=== PATIENT | female | born 1965 | race Caucasian/White ===

== ENCOUNTER 2018-08-27 11:31 | Inpatient (IN) ==
[2018-08-27] MEDS ORDERED: SODIUM CHLORIDE 0.9% 1,000 ML IV STA (12:02)
[2018-08-27] MEDS ORDERED: ONDANSETRON 4 MG/2 ML VIAL IV STA (12:02)
[2018-08-27 13:19] LABS: Basophils % 0.1 % (0.0-0.8); Eosinophils % 0.3 % (0.00-10.9); Hematocrit 33.8 VOL% (35.7-47.0); Immature Granulocytes % 0.7 %; Immature Granulocytes Absolute 0.05 #; Lymphocytes # 0.2 10*3/uL (1.4-4.0); Lymphocytes % 3.3 % (21.3-54.2); Mean Corpuscular HGB Conc 32.5 GM/DL (32-36); Mean Corpuscular Volume 91.1 FL (87-102); Mean Platelet Volume 10.5 FL (9.6-12.0); Monocytes % 0.8 % (1.7-12.7); Neutrophils % 94.8 % (38.7-73.9); Platelet Count 244 T/CUMM (130-400); Red Blood Count 3.71 MC/CUMM (3.8-5.5); Red Cell Distribution Width 13.1 % (9.3-17.3); White Blood Count 7.3 T/CUMM (4-12)
[2018-08-27 13:41] LABS: Albumin 2.9 G/DL (3.4-5.0); Calcium 9.2 MG/DL (8.5-10.1); Osmolality,Calculated 283.1 MOS/KG (273-304); Total Protein 7.8 G/DL (6.4-8.3)
[2018-08-27 13:48] LABS: Band Neutrophils 2 % (0-10); Lymphocytes 3 % (20-55); Segmented Neutrophils 95 % (50-85)
[2018-08-27 13:50] LABS: Platelet Estimate Adequate; Total Cells Counted 100
[2018-08-27] MEDS ORDERED: HYDROmorphone 2 MG/1 ML VIAL IV STA (14:17)
[2018-08-27] MEDS ORDERED: cefTRIAXone 1,000 MG in SODIUM CHLORIDE 0.9% 100 ML IV STA (14:19)
[2018-08-27 15:09] LABS: Apearance,Urine CLEAR (Clear); Bacteria,Urine Occasional /HPF (Few); Bilirubin,Urine Negative (Negative); Blood, Urine Negative (Negative); Glucose,Urine (UA) >=500 mg/dL (Negative); Ketones,Urine 5 mg/dL (Negative); Mucus,Urine Occasional /LPF (Occasional); Nitrite,Urine Negative (Negative); Protein,Urine Negative; RBC,Urine 1 /HPF (0-4); Squamous Epithelial Cell,Urine Occasional /HPF (0-10); Urine Color Yellow (Yellow); Urine Specific Gravity 1.028 (1.001-1.035); Urine Urobilinogen < 2.0 EU/DL (0.2-1.0); WBC,Urine 13 /HPF (0-6)
[2018-08-27 15:26] LABS: Barbiturates Screen,Urine Negative (Negative); Benzodiazepines Screen,Urine Negative (Negative); Cannabinoid Screen,Urine Negative (Negative); Opiate Screen,Urine Negative (Negative); Phencyclidine Screen,Urine Negative (Negative)
[2018-08-27] MEDS ORDERED: INSULIN LISPRO 100 UNIT/ML SUBCUT STA (16:04)
[2018-08-27] MEDS ORDERED: ZALEPLON 5 MG CAPSULE PO PRN (16:54)
[2018-08-27] MEDS ORDERED: DEXTROSE 10% 250 ML BAG IV PRN (16:54)
[2018-08-27] MEDS ORDERED: PROMETHAZINE 25 MG/1 ML VIAL IM PRN (16:54)
[2018-08-27] MEDS ORDERED: ONDANSETRON 4 MG/2 ML VIAL IV PRN (16:54)
[2018-08-27] MEDS ORDERED: GLUCAGON 1 MG VIAL IM PRN (16:54)
[2018-08-27] MEDS ORDERED: ACETAMINOPHEN 325 MG TABLET PO PRN (16:54)
[2018-08-27] MEDS ORDERED: HYDROmorphone 2 MG/1 ML VIAL IV PRN (17:52)
[2018-08-27] MEDS: SODIUM CHLORIDE 0.9% 1,000 ML IV SCH (21:02)
[2018-08-27] MEDS: INSULIN REGULAR 100 UNIT/ML SUBCUT SCH (22:07)
[2018-08-27] MEDS: MONTELUKAST 10 MG TABLET PO SCH (22:08)
[2018-08-27] MEDS: FUROSEMIDE 20 MG TABLET PO SCH (22:08)
[2018-08-27] MEDS: SIMVASTATIN 20 MG TABLET PO SCH (22:09)
[2018-08-27] MEDS: hydrOXYzine HCL 25 MG TABLET PO SCH (22:09)
[2018-08-27] MEDS: GABAPENTIN 300 MG CAPSULE PO SCH (22:09)
[2018-08-28 05:36] LABS: Basophils % 0.1 % (0.0-0.8); Eosinophils # 0.1 10*3/uL (0.0-0.87); Eosinophils % 0.7 % (0.00-10.9); Hematocrit 31.8 VOL% (35.7-47.0); Hemoglobin 10.4 GM/DL (12.0-16.0); Immature Granulocytes % 0.6 %; Immature Granulocytes Absolute 0.06 #; Lymphocytes # 1.2 10*3/uL (1.4-4.0); Lymphocytes % 11.6 % (21.3-54.2); Mean Corpuscular HGB Conc 32.7 GM/DL (32-36); Mean Corpuscular Volume 91.6 FL (87-102); Mean Platelet Volume 10.6 FL (9.6-12.0); Monocytes % 5.2 % (1.7-12.7); Neutrophils % 81.8 % (38.7-73.9); Platelet Count 209 T/CUMM (130-400); Red Blood Count 3.47 MC/CUMM (3.8-5.5); Red Cell Distribution Width 13.4 % (9.3-17.3); White Blood Count 10.7 T/CUMM (4-12)
[2018-08-28 05:59] LABS: Albumin 2.5 G/DL (3.4-5.0); Bilirubin,Total 0.6 MG/DL (0.2-1.0); Osmolality,Calculated 281.1 MOS/KG (273-304); Total Protein 7.3 G/DL (6.4-8.3)
[2018-08-28] MEDS ORDERED: hydroCHLOROthiazide 12.5 MG CAPSULE PO SCH (09:00)
[2018-08-28] MEDS ORDERED: cefTRIAXone 1,000 MG in SYRINGE 1 EACH IV SCH (09:00)
[2018-08-28] MEDS: INSULIN REGULAR 100 UNIT/ML SUBCUT SCH ×4 (09:34→21:01)
[2018-08-28] MEDS: FLUCONAZOLE 200 MG TABLET PO SCH (09:36)
[2018-08-28] MEDS: hydrOXYzine HCL 25 MG TABLET PO SCH ×2 (09:36→21:01)
[2018-08-28] MEDS: PANTOPRAZOLE 40 MG TABLET PO SCH (09:36)
[2018-08-28] MEDS: FOSINOPRIL 10 MG TABLET PO SCH (09:36)
[2018-08-28] MEDS: amLODIPine 10 MG TABLET PO SCH (09:36)
[2018-08-28] MEDS: buPROPion XL 150 MG TABLET PO SCH (09:36)
[2018-08-28] MEDS: GABAPENTIN 300 MG CAPSULE PO SCH ×3 (09:36→21:01)
[2018-08-28] MEDS: CLOPIDOGREL 75 MG TABLET PO SCH (09:36)
[2018-08-28] MEDS: predniSONE 10 MG TABLET PO SCH (09:37)
[2018-08-28] MEDS: ASPIRIN EC 81 MG TABLET PO SCH (09:37)
[2018-08-28] MEDS: LORATADINE 10 MG TABLET PO SCH (09:38)
[2018-08-28] MEDS: FUROSEMIDE 20 MG TABLET PO SCH ×2 (09:38→21:00)
[2018-08-28] MEDS: hydroCHLOROthiazide 25 MG TABLET PO SCH (09:38)
[2018-08-28] MEDS: GENTAMICIN INJ 320 MG in SODIUM CHLORIDE 0.9% 100 ML IV SCH (13:27)
[2018-08-28] MEDS: INSULIN GLARGINE 100 UNIT/ML SUBCUT SCH ×2 (14:10→21:01)
[2018-08-28] MEDS: SODIUM CHLORIDE 0.9% 1,000 ML IV SCH (16:49)
[2018-08-28] MEDS: MONTELUKAST 10 MG TABLET PO SCH (21:00)
[2018-08-28] MEDS: SIMVASTATIN 20 MG TABLET PO SCH (21:01)
[2018-08-29] MEDS: SODIUM CHLORIDE 0.9% 1,000 ML IV SCH ×4 (02:49→23:20)
[2018-08-29 04:57] LABS: Basophils % 0.3 % (0.0-0.8); Eosinophils # 0.1 10*3/uL (0.0-0.87); Eosinophils % 1.4 % (0.00-10.9); Hematocrit 31.6 VOL% (35.7-47.0); Immature Granulocytes % 0.6 %; Immature Granulocytes Absolute 0.06 #; Lymphocytes % 19.1 % (21.3-54.2); Mean Corpuscular HGB Conc 31.6 GM/DL (32-36); Mean Corpuscular Volume 93.5 FL (87-102); Mean Platelet Volume 10.7 FL (9.6-12.0); Monocytes % 6.8 % (1.7-12.7); Neutrophils % 71.8 % (38.7-73.9); Platelet Count 203 T/CUMM (130-400); Red Blood Count 3.38 MC/CUMM (3.8-5.5); Red Cell Distribution Width 13.2 % (9.3-17.3); White Blood Count 10.2 T/CUMM (4-12)
[2018-08-29 05:16] LABS: Risk Ratio 5.97; VLDL CHOLESTEROL 51.2 MG/DL
[2018-08-29 05:22] LABS: Calcium 8.7 MG/DL (8.5-10.1); Osmolality,Calculated 282.1 MOS/KG (273-304)
[2018-08-29] MEDS ORDERED: POTASSIUM CHLORIDE 20 MEQ TABLET PO ONE ×2 (08:05→12:00)
[2018-08-29] MEDS: INSULIN GLARGINE 100 UNIT/ML SUBCUT SCH ×2 (08:35→20:31)
[2018-08-29] MEDS: INSULIN REGULAR 100 UNIT/ML SUBCUT SCH ×4 (08:35→20:31)
[2018-08-29] MEDS: ASPIRIN EC 81 MG TABLET PO SCH (08:37)
[2018-08-29] MEDS: FUROSEMIDE 20 MG TABLET PO SCH ×2 (08:37→20:31)
[2018-08-29] MEDS: hydroCHLOROthiazide 25 MG TABLET PO SCH (08:37)
[2018-08-29] MEDS: FOSINOPRIL 10 MG TABLET PO SCH (08:37)
[2018-08-29] MEDS: amLODIPine 10 MG TABLET PO SCH (08:38)
[2018-08-29] MEDS: GABAPENTIN 300 MG CAPSULE PO SCH ×3 (08:39→20:31)
[2018-08-29] MEDS: CLOPIDOGREL 75 MG TABLET PO SCH (08:39)
[2018-08-29] MEDS: FLUCONAZOLE 200 MG TABLET PO SCH (08:39)
[2018-08-29] MEDS: PANTOPRAZOLE 40 MG TABLET PO SCH (08:40)
[2018-08-29] MEDS: predniSONE 10 MG TABLET PO SCH (08:40)
[2018-08-29] MEDS: LORATADINE 10 MG TABLET PO SCH (08:40)
[2018-08-29] MEDS: buPROPion XL 150 MG TABLET PO SCH (08:40)
[2018-08-29] MEDS: FLUoxetine 20 MG CAPSULE PO SCH (08:51)
[2018-08-29] MEDS ORDERED: cefTRIAXone 2,000 MG in SYRINGE 1 EACH IV SCH (09:00)
[2018-08-29] MEDS: hydrOXYzine HCL 25 MG TABLET PO SCH ×2 (09:00→20:31)
[2018-08-29] MEDS: GENTAMICIN INJ 320 MG in SODIUM CHLORIDE 0.9% 100 ML IV SCH (12:22)
[2018-08-29] MEDS ORDERED: Liraglutide 1.2 MG SUBCUT SCH (12:45)
[2018-08-29] MEDS: OMEGA 3 ACID ETHYL ESTERS 1 GM CAPSULE PO SCH ×2 (14:18→20:30)
[2018-08-29] MEDS: sitaGLIPtin 100 MG TABLET PO SCH (14:18)
[2018-08-29] MEDS: MONTELUKAST 10 MG TABLET PO SCH (20:30)
[2018-08-29] MEDS: SIMVASTATIN 20 MG TABLET PO SCH (20:31)
[2018-08-30] MEDS: cefTRIAXone 2,000 MG in SODIUM CHLORIDE 0.9% 100 ML IV SCH (09:15)
[2018-08-30] MEDS: INSULIN GLARGINE 100 UNIT/ML SUBCUT SCH ×2 (09:15→21:00)
[2018-08-30] MEDS: INSULIN REGULAR 100 UNIT/ML SUBCUT SCH ×4 (09:15→21:01)
[2018-08-30] MEDS: FLUCONAZOLE 200 MG TABLET PO SCH (09:16)
[2018-08-30] MEDS: ASPIRIN EC 81 MG TABLET PO SCH (09:16)
[2018-08-30] MEDS: FUROSEMIDE 20 MG TABLET PO SCH ×2 (09:16→21:02)
[2018-08-30] MEDS: hydroCHLOROthiazide 25 MG TABLET PO SCH (09:16)
[2018-08-30] MEDS: buPROPion XL 150 MG TABLET PO SCH (09:16)
[2018-08-30] MEDS: LORATADINE 10 MG TABLET PO SCH (09:17)
[2018-08-30] MEDS: amLODIPine 10 MG TABLET PO SCH (09:17)
[2018-08-30] MEDS: FLUoxetine 20 MG CAPSULE PO SCH (09:17)
[2018-08-30] MEDS: OMEGA 3 ACID ETHYL ESTERS 1 GM CAPSULE PO SCH ×2 (09:17→23:20)
[2018-08-30] MEDS: predniSONE 10 MG TABLET PO SCH (09:17)
[2018-08-30] MEDS: hydrOXYzine HCL 25 MG TABLET PO SCH ×2 (09:17→21:02)
[2018-08-30] MEDS: sitaGLIPtin 100 MG TABLET PO SCH (09:17)
[2018-08-30] MEDS: GABAPENTIN 300 MG CAPSULE PO SCH ×3 (09:18→21:02)
[2018-08-30] MEDS: SODIUM CHLORIDE 0.9% 1,000 ML IV SCH ×2 (09:21→20:44)
[2018-08-30] MEDS: FOSINOPRIL 10 MG TABLET PO SCH (09:27)
[2018-08-30] MEDS: PANTOPRAZOLE 40 MG TABLET PO SCH (09:28)
[2018-08-30] MEDS: GENTAMICIN INJ 320 MG in SODIUM CHLORIDE 0.9% 100 ML IV SCH (15:07)
[2018-08-30] MEDS ORDERED: SODIUM CHLORIDE 0.9% 500 ML IV ONE (20:53)
[2018-08-30] MEDS: SIMVASTATIN 20 MG TABLET PO SCH (21:02)
[2018-08-30] MEDS: MONTELUKAST 10 MG TABLET PO SCH (21:02)
[2018-08-31] MEDS ORDERED: GENTAMICIN INJ 320 MG in SODIUM CHLORIDE 0.9% 100 ML IV SCH
[2018-08-31 05:49] LABS: Basophils % 0.2 % (0.0-0.8); Eosinophils # 0.3 10*3/uL (0.0-0.87); Eosinophils % 2.7 % (0.00-10.9); Hematocrit 31.2 VOL% (35.7-47.0); Immature Granulocytes % 0.9 %; Immature Granulocytes Absolute 0.08 #; Lymphocytes # 2.7 10*3/uL (1.4-4.0); Lymphocytes % 28.5 % (21.3-54.2); Mean Corpuscular HGB Conc 32.1 GM/DL (32-36); Mean Corpuscular Volume 92.6 FL (87-102); Mean Platelet Volume 10.5 FL (9.6-12.0); Monocytes % 6.2 % (1.7-12.7); Neutrophils % 61.5 % (38.7-73.9); Platelet Count 260 T/CUMM (130-400); Red Blood Count 3.37 MC/CUMM (3.8-5.5); Red Cell Distribution Width 13.5 % (9.3-17.3); White Blood Count 9.4 T/CUMM (4-12)
[2018-08-31 06:09] LABS: Calcium 9.2 MG/DL (8.5-10.1); Osmolality,Calculated 287.1 MOS/KG (273-304)
[2018-08-31] MEDS: INSULIN REGULAR 100 UNIT/ML SUBCUT SCH ×4 (09:30→21:13)
[2018-08-31] MEDS: sitaGLIPtin 100 MG TABLET PO SCH (09:31)
[2018-08-31] MEDS: buPROPion XL 150 MG TABLET PO SCH (09:31)
[2018-08-31] MEDS: OMEGA 3 ACID ETHYL ESTERS 1 GM CAPSULE PO SCH ×2 (09:31→21:13)
[2018-08-31] MEDS: predniSONE 10 MG TABLET PO SCH (09:32)
[2018-08-31] MEDS: PANTOPRAZOLE 40 MG TABLET PO SCH (09:32)
[2018-08-31] MEDS: hydroCHLOROthiazide 25 MG TABLET PO SCH (09:32)
[2018-08-31] MEDS: FUROSEMIDE 20 MG TABLET PO SCH ×2 (09:32→21:13)
[2018-08-31] MEDS: FLUCONAZOLE 200 MG TABLET PO SCH (09:32)
[2018-08-31] MEDS: hydrOXYzine HCL 25 MG TABLET PO SCH ×2 (09:33→21:12)
[2018-08-31] MEDS: LORATADINE 10 MG TABLET PO SCH (09:34)
[2018-08-31] MEDS: ASPIRIN EC 81 MG TABLET PO SCH (09:34)
[2018-08-31] MEDS: GABAPENTIN 300 MG CAPSULE PO SCH ×3 (09:35→21:13)
[2018-08-31] MEDS: FOSINOPRIL 10 MG TABLET PO SCH (09:35)
[2018-08-31] MEDS: FLUoxetine 20 MG CAPSULE PO SCH (09:46)
[2018-08-31] MEDS: amLODIPine 10 MG TABLET PO SCH (09:46)
[2018-08-31] MEDS: INSULIN GLARGINE 100 UNIT/ML SUBCUT SCH ×2 (09:47→21:13)
[2018-08-31] MEDS: SODIUM CHLORIDE 0.9% 1,000 ML IV SCH ×2 (10:02→20:02)
[2018-08-31] MEDS: cefTRIAXone 2,000 MG in SODIUM CHLORIDE 0.9% 100 ML IV SCH (10:03)
[2018-08-31] MEDS: SIMVASTATIN 20 MG TABLET PO SCH (21:14)
[2018-08-31] MEDS: MONTELUKAST 10 MG TABLET PO SCH (21:14)
[2018-09-01 05:02] LABS: Basophils % 0.4 % (0.0-0.8); Eosinophils # 0.2 10*3/uL (0.0-0.87); Eosinophils % 2.3 % (0.00-10.9); Hematocrit 33.3 VOL% (35.7-47.0); Hemoglobin 10.4 GM/DL (12.0-16.0); Immature Granulocytes % 1.1 %; Immature Granulocytes Absolute 0.12 #; Lymphocytes # 2.8 10*3/uL (1.4-4.0); Lymphocytes % 26.8 % (21.3-54.2); Mean Corpuscular HGB Conc 31.2 GM/DL (32-36); Mean Corpuscular Volume 94.3 FL (87-102); Mean Platelet Volume 10.3 FL (9.6-12.0); Monocytes % 6.8 % (1.7-12.7); Neutrophils % 62.6 % (38.7-73.9); Platelet Count 307 T/CUMM (130-400); Red Blood Count 3.53 MC/CUMM (3.8-5.5); Red Cell Distribution Width 13.4 % (9.3-17.3); White Blood Count 10.5 T/CUMM (4-12)
[2018-09-01 05:32] LABS: Calcium 9.4 MG/DL (8.5-10.1); Osmolality,Calculated 281.4 MOS/KG (273-304)
[2018-09-01] MEDS: SODIUM CHLORIDE 0.9% 1,000 ML IV SCH ×2 (07:30→16:54)
[2018-09-01] MEDS: INSULIN REGULAR 100 UNIT/ML SUBCUT SCH ×4 (08:49→21:06)
[2018-09-01] MEDS: hydroCHLOROthiazide 25 MG TABLET PO SCH (09:29)
[2018-09-01] MEDS: INSULIN GLARGINE 100 UNIT/ML SUBCUT SCH ×2 (09:29→21:07)
[2018-09-01] MEDS: ASPIRIN EC 81 MG TABLET PO SCH (09:29)
[2018-09-01] MEDS: buPROPion XL 150 MG TABLET PO SCH (09:29)
[2018-09-01] MEDS: LORATADINE 10 MG TABLET PO SCH (09:30)
[2018-09-01] MEDS: predniSONE 10 MG TABLET PO SCH (09:30)
[2018-09-01] MEDS: PANTOPRAZOLE 40 MG TABLET PO SCH (09:30)
[2018-09-01] MEDS: amLODIPine 10 MG TABLET PO SCH (09:30)
[2018-09-01] MEDS: GABAPENTIN 300 MG CAPSULE PO SCH ×3 (09:30→21:06)
[2018-09-01] MEDS: OMEGA 3 ACID ETHYL ESTERS 1 GM CAPSULE PO SCH ×2 (09:30→21:06)
[2018-09-01] MEDS: FUROSEMIDE 20 MG TABLET PO SCH ×2 (09:30→21:07)
[2018-09-01] MEDS: LEVOFLOXACIN 500 MG TABLET PO SCH (09:30)
[2018-09-01] MEDS: sitaGLIPtin 100 MG TABLET PO SCH (09:30)
[2018-09-01] MEDS: hydrOXYzine HCL 25 MG TABLET PO SCH ×2 (09:30→21:06)
[2018-09-01] MEDS: FLUoxetine 20 MG CAPSULE PO SCH (09:31)
[2018-09-01] MEDS: FOSINOPRIL 10 MG TABLET PO SCH (09:31)
[2018-09-01] MEDS: CLOPIDOGREL 75 MG TABLET PO SCH (09:34)
[2018-09-01] MEDS: SIMVASTATIN 20 MG TABLET PO SCH (21:06)
[2018-09-01] MEDS: MONTELUKAST 10 MG TABLET PO SCH (21:06)
[2018-09-02] MEDS: SODIUM CHLORIDE 0.9% 1,000 ML IV SCH ×3 (03:45→23:08)
[2018-09-02] MEDS: INSULIN GLARGINE 100 UNIT/ML SUBCUT SCH ×2 (08:06→20:21)
[2018-09-02] MEDS: INSULIN REGULAR 100 UNIT/ML SUBCUT SCH ×4 (08:07→20:22)
[2018-09-02] MEDS: sitaGLIPtin 100 MG TABLET PO SCH (08:08)
[2018-09-02] MEDS: hydroCHLOROthiazide 25 MG TABLET PO SCH (08:08)
[2018-09-02] MEDS: OMEGA 3 ACID ETHYL ESTERS 1 GM CAPSULE PO SCH ×2 (08:08→20:21)
[2018-09-02] MEDS: FLUoxetine 20 MG CAPSULE PO SCH (08:08)
[2018-09-02] MEDS: GABAPENTIN 300 MG CAPSULE PO SCH ×3 (08:09→20:21)
[2018-09-02] MEDS: LEVOFLOXACIN 500 MG TABLET PO SCH (08:09)
[2018-09-02] MEDS: CLOPIDOGREL 75 MG TABLET PO SCH (08:09)
[2018-09-02] MEDS: PANTOPRAZOLE 40 MG TABLET PO SCH (08:10)
[2018-09-02] MEDS: amLODIPine 10 MG TABLET PO SCH (08:10)
[2018-09-02] MEDS: predniSONE 10 MG TABLET PO SCH (08:10)
[2018-09-02] MEDS: LORATADINE 10 MG TABLET PO SCH (08:10)
[2018-09-02] MEDS: buPROPion XL 150 MG TABLET PO SCH (08:10)
[2018-09-02] MEDS: FUROSEMIDE 20 MG TABLET PO SCH ×2 (08:10→20:21)
[2018-09-02] MEDS: ASPIRIN EC 81 MG TABLET PO SCH (08:10)
[2018-09-02] MEDS: FOSINOPRIL 10 MG TABLET PO SCH (08:10)
[2018-09-02] MEDS: hydrOXYzine HCL 25 MG TABLET PO SCH ×2 (08:15→20:21)
[2018-09-02] MEDS ORDERED: INSULIN REGULAR 100 UNIT/ML SUBCUT ONE (18:26)
[2018-09-02] MEDS: MONTELUKAST 10 MG TABLET PO SCH (20:21)
[2018-09-02] MEDS: SIMVASTATIN 20 MG TABLET PO SCH (20:21)
[2018-09-03 05:38] LABS: Calcium 9.5 MG/DL (8.5-10.1); Osmolality,Calculated 290.4 MOS/KG (273-304)
[2018-09-03] MEDS: INSULIN REGULAR 100 UNIT/ML SUBCUT SCH ×2 (08:26→12:33)
[2018-09-03] MEDS: INSULIN GLARGINE 100 UNIT/ML SUBCUT SCH (09:05)
[2018-09-03] MEDS: FUROSEMIDE 20 MG TABLET PO SCH (09:06)
[2018-09-03] MEDS: predniSONE 10 MG TABLET PO SCH (09:06)
[2018-09-03] MEDS: GABAPENTIN 300 MG CAPSULE PO SCH (09:06)
[2018-09-03] MEDS: hydroCHLOROthiazide 25 MG TABLET PO SCH (09:06)
[2018-09-03] MEDS: sitaGLIPtin 100 MG TABLET PO SCH (09:07)
[2018-09-03] MEDS: OMEGA 3 ACID ETHYL ESTERS 1 GM CAPSULE PO SCH (09:07)
[2018-09-03] MEDS: amLODIPine 10 MG TABLET PO SCH (09:07)
[2018-09-03] MEDS: CLOPIDOGREL 75 MG TABLET PO SCH (09:07)
[2018-09-03] MEDS: FLUoxetine 20 MG CAPSULE PO SCH (09:07)
[2018-09-03] MEDS: ASPIRIN EC 81 MG TABLET PO SCH (09:07)
[2018-09-03] MEDS: LEVOFLOXACIN 500 MG TABLET PO SCH (09:07)
[2018-09-03] MEDS: LORATADINE 10 MG TABLET PO SCH (09:07)
[2018-09-03] MEDS: buPROPion XL 150 MG TABLET PO SCH (09:07)
[2018-09-03] MEDS: PANTOPRAZOLE 40 MG TABLET PO SCH (09:07)
[2018-09-03] MEDS: FOSINOPRIL 10 MG TABLET PO SCH (09:08)
[2018-09-03] MEDS: hydrOXYzine HCL 25 MG TABLET PO SCH (09:53)
[2018-09-03 11:44] VITALS: BP 91/58
== END 2018-09-03 12:30 | disposition home or self-care (01) | DRG 690 ==
LOC: EDUNIT# → EDBD → N.ED 11:31 → N.2E 16:54
PROVIDERS: ADMIT Internal Medicine; ATTEND Internal Medicine

== ENCOUNTER 2018-09-06 21:14 | Observation (INO) ==
[2018-09-06 22:45] LABS: Basophils % 0.3 % (0.0-0.8); Eosinophils # 0.1 10*3/uL (0.0-0.87); Eosinophils % 0.5 % (0.00-10.9); Hematocrit 40.6 VOL% (35.7-47.0); Hemoglobin 12.5 GM/DL (12.0-16.0); Immature Granulocytes % 0.9 %; Immature Granulocytes Absolute 0.12 #; Lymphocytes # 1.3 10*3/uL (1.4-4.0); Lymphocytes % 10.4 % (21.3-54.2); Mean Corpuscular HGB Conc 30.8 GM/DL (32-36); Mean Corpuscular Volume 93.3 FL (87-102); Mean Platelet Volume 9.3 FL (9.6-12.0); Monocytes % 3.6 % (1.7-12.7); Neutrophils % 84.3 % (38.7-73.9); Platelet Count 364 T/CUMM (130-400); Red Blood Count 4.35 MC/CUMM (3.8-5.5); Red Cell Distribution Width 13.2 % (9.3-17.3); White Blood Count 12.9 T/CUMM (4-12)
[2018-09-06 22:53] LABS: PT Patient Result 11.3 SECS; Partial Thromboplastin Time 24.3 SECS (0-40)
[2018-09-06 23:38] LABS: Albumin 3.6 G/DL (3.4-5.0); Bilirubin,Total 0.6 MG/DL (0.2-1.0); Osmolality,Calculated 283.1 MOS/KG (273-304); Total Protein 8.2 G/DL (6.4-8.3)
[2018-09-06] MEDS ORDERED: ONDANSETRON 4 MG/2 ML VIAL IV STA (23:53)
[2018-09-06] MEDS ORDERED: SODIUM CHLORIDE 0.9% 1,000 ML IV STA (23:53)
[2018-09-07 00:40] LABS: Apearance,Urine CLOUDY (Clear); Bilirubin,Urine Negative (Negative); Blood, Urine Small mg/dL (Negative); Glucose,Urine (UA) 50 mg/dL (Negative); Ketones,Urine 5 mg/dL (Negative); Mucus,Urine Few /LPF (Occasional); Nitrite,Urine Negative (Negative); Protein,Urine 100 MG/DL; RBC,Urine 217 /HPF (0-4); Squamous Epithelial Cell,Urine Many /HPF (0-10); Urine Color Yellow (Yellow); Urine Specific Gravity 1.018 (1.001-1.035); Urine Urobilinogen < 2.0 EU/DL (0.2-1.0); WBC,Urine 8867 /HPF (0-6)
[2018-09-07] MEDS ORDERED: ACETAMINOPHEN 325 MG TABLET PO PRN (03:06)
[2018-09-07] MEDS: LEVOFLOXACIN INJ 500 MG in PREMIX 1 EACH IV SCH (04:01)
[2018-09-07] MEDS: ONDANSETRON 4 MG/2 ML VIAL IV PRN ×3 (04:06→12:16)
[2018-09-07 04:47] LABS: Basophils % 0.2 % (0.0-0.8); Eosinophils % 0.3 % (0.00-10.9); Hematocrit 35.5 VOL% (35.7-47.0); Hemoglobin 11.4 GM/DL (12.0-16.0); Immature Granulocytes % 0.9 %; Immature Granulocytes Absolute 0.11 #; Lymphocytes # 2.2 10*3/uL (1.4-4.0); Lymphocytes % 17.7 % (21.3-54.2); Mean Corpuscular HGB Conc 32.1 GM/DL (32-36); Mean Corpuscular Volume 92.4 FL (87-102); Mean Platelet Volume 10.1 FL (9.6-12.0); Monocytes % 3.2 % (1.7-12.7); Neutrophils % 77.7 % (38.7-73.9); Platelet Count 357 T/CUMM (130-400); Red Blood Count 3.84 MC/CUMM (3.8-5.5); Red Cell Distribution Width 13.2 % (9.3-17.3); White Blood Count 12.4 T/CUMM (4-12)
[2018-09-07] MEDS ORDERED: DEXTROSE 50% 25 GM/50 ML VIAL IV PRN (04:57)
[2018-09-07] MEDS ORDERED: GLUCAGON 1 MG VIAL IM PRN (04:57)
[2018-09-07 05:20] LABS: Albumin 3.1 G/DL (3.4-5.0); Bilirubin,Total 0.6 MG/DL (0.2-1.0); Calcium 9.3 MG/DL (8.5-10.1); Osmolality,Calculated 280.2 MOS/KG (273-304); Total Protein 8.1 G/DL (6.4-8.3)
[2018-09-07] MEDS ORDERED: [UNRECOGNIZED DRUG - OTHER] PO SCH (09:00)
[2018-09-07] MEDS ORDERED: NON-FORMULARY MEDICATION (Liraglutide 1.2 MG) SUBCUT SCH (09:00)
[2018-09-07] MEDS: GABAPENTIN 300 MG CAPSULE PO SCH ×3 (09:24→21:38)
[2018-09-07] MEDS: PANTOPRAZOLE 40 MG TABLET PO SCH (09:25)
[2018-09-07] MEDS: sitaGLIPtin 100 MG TABLET PO SCH (09:25)
[2018-09-07] MEDS: hydroCHLOROthiazide 12.5 MG CAPSULE PO SCH (09:25)
[2018-09-07] MEDS: buPROPion XL 150 MG TABLET PO SCH (09:25)
[2018-09-07] MEDS: OMEGA 3 ACID ETHYL ESTERS 1 GM CAPSULE PO SCH ×2 (09:25→21:43)
[2018-09-07] MEDS: LORATADINE 10 MG TABLET PO SCH (09:25)
[2018-09-07] MEDS: hydrOXYzine HCL 25 MG TABLET PO SCH ×2 (09:25→21:38)
[2018-09-07] MEDS: ASPIRIN EC 81 MG TABLET PO SCH (09:25)
[2018-09-07] MEDS: LISINOPRIL 20 MG TABLET PO SCH (09:25)
[2018-09-07] MEDS: predniSONE 10 MG TABLET PO SCH (09:25)
[2018-09-07] MEDS: CLOPIDOGREL 75 MG TABLET PO SCH (09:26)
[2018-09-07] MEDS: amLODIPine 10 MG TABLET PO SCH (09:26)
[2018-09-07] MEDS: FUROSEMIDE 20 MG TABLET PO SCH ×2 (09:26→15:10)
[2018-09-07] MEDS: FLUoxetine 20 MG CAPSULE PO SCH (09:26)
[2018-09-07] MEDS: INSULIN GLARGINE 100 UNIT/ML SUBCUT SCH ×2 (09:26→21:43)
[2018-09-07] MEDS: INSULIN LISPRO 100 UNIT/ML SUBCUT SCH ×4 (09:27→23:14)
[2018-09-07] MEDS: ENOXAPARIN 30 MG/0.3 ML SYRINGE SUBCUT SCH (15:11)
[2018-09-07 15:13] LABS: Hepatitis B Core IgM Quant 0.09 Index; Hepatitis B Surface Ag Quant < 0.10 Index; Hepatitis B Surface Ag Result Negative (Negative); Hepatitis C Virus Ab Quant 0.08 Index; Hepatitis C Virus Ab Result Negative (Negative)
[2018-09-07] MEDS: SIMVASTATIN 20 MG TABLET PO SCH (21:38)
[2018-09-07] MEDS: MONTELUKAST 10 MG TABLET PO SCH (21:38)
[2018-09-08] MEDS: LEVOFLOXACIN INJ 500 MG in PREMIX 1 EACH IV SCH (03:46)
[2018-09-08 04:14] LABS: Basophils % 0.3 % (0.0-0.8); Eosinophils # 0.2 10*3/uL (0.0-0.87); Eosinophils % 2.1 % (0.00-10.9); Hematocrit 36.7 VOL% (35.7-47.0); Hemoglobin 11.4 GM/DL (12.0-16.0); Lymphocytes # 3.8 10*3/uL (1.4-4.0); Lymphocytes % 37.3 % (21.3-54.2); Mean Corpuscular HGB Conc 31.1 GM/DL (32-36); Mean Corpuscular Volume 94.1 FL (87-102); Mean Platelet Volume 9.5 FL (9.6-12.0); Monocytes % 6.2 % (1.7-12.7); Neutrophils % 53.1 % (38.7-73.9); Platelet Count 340 T/CUMM (130-400); Red Cell Distribution Width 13.1 % (9.3-17.3); White Blood Count 10.1 T/CUMM (4-12)
[2018-09-08 04:42] LABS: Bilirubin,Total 0.5 MG/DL (0.2-1.0); Calcium 10.1 MG/DL (8.5-10.1); Osmolality,Calculated 278.7 MOS/KG (273-304)
[2018-09-08] MEDS ORDERED: LACTATED RINGERS 1,000 ML IV SCH (08:00)
[2018-09-08] MEDS: INSULIN LISPRO 100 UNIT/ML SUBCUT SCH ×4 (08:15→20:37)
[2018-09-08] MEDS: FUROSEMIDE 20 MG TABLET PO SCH ×2 (13:17→16:17)
[2018-09-08] MEDS: INSULIN GLARGINE 100 UNIT/ML SUBCUT SCH ×2 (13:21→20:37)
[2018-09-08] MEDS: GABAPENTIN 300 MG CAPSULE PO SCH ×3 (13:22→20:38)
[2018-09-08] MEDS ORDERED: LIDOCAINE 2% 5 ML VIAL ONE (13:55)
[2018-09-08] MEDS ORDERED: ETOMIDATE 20 MG/10 ML VIAL IV ONE (13:55)
[2018-09-08] MEDS ORDERED: PROPOFOL 200 MG/20 ML VIAL IV ONE (13:55)
[2018-09-08] MEDS: OMEGA 3 ACID ETHYL ESTERS 1 GM CAPSULE PO SCH ×3 (16:00→20:45)
[2018-09-08] MEDS: hydrOXYzine HCL 25 MG TABLET PO SCH ×2 (16:00→20:38)
[2018-09-08] MEDS: CLOPIDOGREL 75 MG TABLET PO SCH (16:16)
[2018-09-08] MEDS: hydroCHLOROthiazide 12.5 MG CAPSULE PO SCH (16:17)
[2018-09-08] MEDS: PANTOPRAZOLE 40 MG TABLET PO SCH (16:17)
[2018-09-08] MEDS: LORATADINE 10 MG TABLET PO SCH (16:17)
[2018-09-08] MEDS: buPROPion XL 150 MG TABLET PO SCH (16:17)
[2018-09-08] MEDS: sitaGLIPtin 100 MG TABLET PO SCH (16:17)
[2018-09-08] MEDS: predniSONE 10 MG TABLET PO SCH (16:17)
[2018-09-08] MEDS: LISINOPRIL 20 MG TABLET PO SCH (16:18)
[2018-09-08] MEDS: amLODIPine 10 MG TABLET PO SCH (16:18)
[2018-09-08] MEDS: ASPIRIN EC 81 MG TABLET PO SCH (16:18)
[2018-09-08] MEDS: FLUoxetine 20 MG CAPSULE PO SCH (16:18)
[2018-09-08] MEDS: ENOXAPARIN 30 MG/0.3 ML SYRINGE SUBCUT SCH (16:19)
[2018-09-08] MEDS: SIMVASTATIN 20 MG TABLET PO SCH (20:38)
[2018-09-08] MEDS: MONTELUKAST 10 MG TABLET PO SCH (20:38)
[2018-09-09] MEDS: LEVOFLOXACIN INJ 500 MG in PREMIX 1 EACH IV SCH (03:38)
[2018-09-09 04:27] LABS: Basophils % 0.2 % (0.0-0.8); Eosinophils # 0.1 10*3/uL (0.0-0.87); Eosinophils % 0.9 % (0.00-10.9); Hemoglobin 11.1 GM/DL (12.0-16.0); Immature Granulocytes % 0.8 %; Immature Granulocytes Absolute 0.08 #; Lymphocytes # 2.5 10*3/uL (1.4-4.0); Lymphocytes % 26.6 % (21.3-54.2); Mean Corpuscular HGB Conc 30.8 GM/DL (32-36); Mean Corpuscular Volume 93.8 FL (87-102); Mean Platelet Volume 9.8 FL (9.6-12.0); Monocytes % 4.2 % (1.7-12.7); Neutrophils % 67.3 % (38.7-73.9); Platelet Count 313 T/CUMM (130-400); Red Blood Count 3.84 MC/CUMM (3.8-5.5); Red Cell Distribution Width 13.2 % (9.3-17.3); White Blood Count 9.6 T/CUMM (4-12)
[2018-09-09 05:01] LABS: Bilirubin,Total 0.9 MG/DL (0.2-1.0); Calcium 9.4 MG/DL (8.5-10.1); Osmolality,Calculated 284.2 MOS/KG (273-304); Total Protein 7.6 G/DL (6.4-8.3)
[2018-09-09] MEDS ORDERED: MAGNESIUM CITRATE 300 ML BOTTLE PO ONE (09:23)
[2018-09-09] MEDS: GABAPENTIN 300 MG CAPSULE PO SCH ×3 (09:36→21:23)
[2018-09-09] MEDS: FUROSEMIDE 20 MG TABLET PO SCH ×2 (09:36→17:08)
[2018-09-09] MEDS: amLODIPine 10 MG TABLET PO SCH (09:36)
[2018-09-09] MEDS: hydroCHLOROthiazide 12.5 MG CAPSULE PO SCH (09:36)
[2018-09-09] MEDS: LISINOPRIL 20 MG TABLET PO SCH (09:36)
[2018-09-09] MEDS: sitaGLIPtin 100 MG TABLET PO SCH (09:36)
[2018-09-09] MEDS: ASPIRIN EC 81 MG TABLET PO SCH (09:36)
[2018-09-09] MEDS: buPROPion XL 150 MG TABLET PO SCH (09:36)
[2018-09-09] MEDS: OMEGA 3 ACID ETHYL ESTERS 1 GM CAPSULE PO SCH ×2 (09:36→21:26)
[2018-09-09] MEDS: LORATADINE 10 MG TABLET PO SCH (09:37)
[2018-09-09] MEDS: predniSONE 10 MG TABLET PO SCH (09:37)
[2018-09-09] MEDS: hydrOXYzine HCL 25 MG TABLET PO SCH ×2 (09:37→21:24)
[2018-09-09] MEDS: CLOPIDOGREL 75 MG TABLET PO SCH (09:37)
[2018-09-09] MEDS: FLUoxetine 20 MG CAPSULE PO SCH (09:37)
[2018-09-09] MEDS: PANTOPRAZOLE 40 MG TABLET PO SCH (09:37)
[2018-09-09] MEDS: INSULIN LISPRO 100 UNIT/ML SUBCUT SCH ×4 (09:37→21:24)
[2018-09-09] MEDS: INSULIN GLARGINE 100 UNIT/ML SUBCUT SCH ×2 (09:38→17:08)
[2018-09-09] MEDS: SODIUM CHLORIDE 0.9% 1,000 ML IV SCH (10:59)
[2018-09-09] MEDS ORDERED: traMADol 50 MG TABLET PO PRN (11:54)
[2018-09-09 13:21] LABS: Smooth Muscle Antibody Negative (Negative)
[2018-09-09] MEDS: ENOXAPARIN 30 MG/0.3 ML SYRINGE SUBCUT SCH (17:10)
[2018-09-09] MEDS ORDERED: EZETIMIBE 10 MG TABLET PO SCH (21:00)
[2018-09-09] MEDS: MONTELUKAST 10 MG TABLET PO SCH (21:23)
[2018-09-10] MEDS: SODIUM CHLORIDE 0.9% 1,000 ML IV SCH ×2 (01:17→13:41)
[2018-09-10 06:51] LABS: Basophils % 0.3 % (0.0-0.8); Eosinophils # 0.3 10*3/uL (0.0-0.87); Eosinophils % 2.7 % (0.00-10.9); Hematocrit 33.3 VOL% (35.7-47.0); Hemoglobin 10.7 GM/DL (12.0-16.0); Immature Granulocytes % 1.1 %; Lymphocytes # 3.7 10*3/uL (1.4-4.0); Lymphocytes % 39.8 % (21.3-54.2); Mean Corpuscular HGB Conc 32.1 GM/DL (32-36); Mean Corpuscular Volume 92.5 FL (87-102); Mean Platelet Volume 10.1 FL (9.6-12.0); Monocytes % 5.7 % (1.7-12.7); Neutrophils % 50.4 % (38.7-73.9); Platelet Count 287 T/CUMM (130-400); Red Cell Distribution Width 13.1 % (9.3-17.3); White Blood Count 9.4 T/CUMM (4-12)
[2018-09-10 07:18] LABS: Bilirubin,Total 0.4 MG/DL (0.2-1.0); Calcium 9.3 MG/DL (8.5-10.1); Osmolality,Calculated 287.5 MOS/KG (273-304); Total Protein 7.3 G/DL (6.4-8.3)
[2018-09-10] MEDS: INSULIN LISPRO 100 UNIT/ML SUBCUT SCH ×2 (07:39→12:11)
[2018-09-10] MEDS ORDERED: POLYETHYLENE GLYCOL POWDER 17 GM PACK PO SCH (09:00)
[2018-09-10] MEDS: buPROPion XL 150 MG TABLET PO SCH (09:01)
[2018-09-10] MEDS: OMEGA 3 ACID ETHYL ESTERS 1 GM CAPSULE PO SCH (09:01)
[2018-09-10] MEDS: GABAPENTIN 300 MG CAPSULE PO SCH (09:01)
[2018-09-10] MEDS: INSULIN GLARGINE 100 UNIT/ML SUBCUT SCH (09:01)
[2018-09-10] MEDS: sitaGLIPtin 100 MG TABLET PO SCH (09:02)
[2018-09-10] MEDS: FUROSEMIDE 20 MG TABLET PO SCH (09:02)
[2018-09-10] MEDS: hydrOXYzine HCL 25 MG TABLET PO SCH (09:02)
[2018-09-10] MEDS: predniSONE 10 MG TABLET PO SCH (09:02)
[2018-09-10] MEDS: LORATADINE 10 MG TABLET PO SCH (09:02)
[2018-09-10] MEDS: ASPIRIN EC 81 MG TABLET PO SCH (09:02)
[2018-09-10] MEDS: PANTOPRAZOLE 40 MG TABLET PO SCH (09:02)
[2018-09-10] MEDS: FLUoxetine 20 MG CAPSULE PO SCH (09:02)
[2018-09-10] MEDS: CLOPIDOGREL 75 MG TABLET PO SCH (09:02)
[2018-09-10] MEDS: amLODIPine 10 MG TABLET PO SCH (09:03)
[2018-09-10 12:38] VITALS: BP 107/69
[2018-09-10] MEDS: ENOXAPARIN 30 MG/0.3 ML SYRINGE SUBCUT SCH (13:42)
[2018-09-11] MEDS ORDERED: LEVOFLOXACIN INJ 500 MG in PREMIX 1 EACH IV SCH (09:00)
[2018-09-11 13:50] LABS: Mitochondrial Antibody (M2) <0.1 U
== END 2018-09-10 14:50 | disposition home or self-care (01) ==
LOC: N.ED 21:14 → N.EDINP 09-07 01:19 → INTOOBSV 09-07 01:19 → N.5E 09-07 01:42
PROVIDERS: ADMIT Internal Medicine; ATTEND Internal Medicine

== ENCOUNTER 2020-10-10 06:08 | Observation (INO) ==
[~2020-10-10 06:08] MED LIST: ASPIRIN 325 MG TABLET PO ONE; DIAZEPAM 5 MG TABLET PO ONE; MAGNESIUM SULF RIDER 2 GM/50 ML PREMIX IV PRN; POTASSIUM CHLORIDE RIDER 10 MEQ/100 ML PREMIX IV PRN; diphenhydrAMINE CAP 25 MG CAPSULE PO ONE
[2020-10-10] MEDS ORDERED: HEPARIN/NACL 0.9% 2 UNITS/ML 3,000 UNIT/1,500 ML BAG IV ONE (07:06)
[2020-10-10] MEDS ORDERED: LIDOCAINE 1% 20 ML VIAL ONE (07:06)
[2020-10-10] MEDS ORDERED: DIAZEPAM 5 MG TABLET ONE (07:20)
[2020-10-10] MEDS ORDERED: ASPIRIN 325 MG TABLET ONE (07:21)
[2020-10-10] MEDS ORDERED: diphenhydrAMINE CAP 25 MG CAPSULE ONE (07:21)
[2020-10-10] MEDS: SODIUM CHLORIDE 0.9% 1,000 ML IV SCH (07:40)
[2020-10-10] MEDS ORDERED: NITROGLYCERIN DRIP 50 MG/250 ML BOTTLE IV ONE (08:06)
[2020-10-10] MEDS ORDERED: fentaNYL 100 MCG/2 ML VIAL ONE (08:06)
[2020-10-10] MEDS ORDERED: VERAPAMIL 5 MG/2 ML VIAL ONE (08:06)
[2020-10-10] MEDS ORDERED: MIDAZOLAM 2 MG/2 ML VIAL ONE (08:06)
[2020-10-10] MEDS ORDERED: INSULIN REGULAR 100 UNIT/ML ONE ×2 (08:23→08:42)
[2020-10-10] MEDS ORDERED: HEPARIN 5,000 UNIT/1 ML VIAL ONE (08:23)
[2020-10-10] MEDS ORDERED: GLUCAGON 1 MG VIAL IM PRN ×3 (09:18→11:13)
[2020-10-10] MEDS ORDERED: DEXTROSE 50% 25 GM/50 ML VIAL IV PRN ×3 (09:18→11:13)
[2020-10-10 10:04] LABS: Albumin 3.3 G/DL (3.4-5.0); Bilirubin,Total 0.7 MG/DL (0.20-1.00); Calcium 9.2 MG/DL (8.5-10.1); Osmolality,Calculated 288.7 MOS/KG (273-304); Potassium 4.6 MMOL/L (3.5-5.1)
[2020-10-10] MEDS ORDERED: INSULIN REGULAR 100 UNIT/ML SUBCUT SCH ×2 (11:30→16:00)
[2020-10-10] MEDS: GABAPENTIN 300 MG CAPSULE PO SCH ×2 (15:52→20:42)
[2020-10-10] MEDS: INSULIN REGULAR 100 UNIT/ML SUBCUT SCH ×2 (16:05→20:54)
[2020-10-10] MEDS: PANTOPRAZOLE 40 MG TABLET PO SCH (20:46)
[2020-10-10] MEDS ORDERED: metFORMIN 500 MG TABLET PO SCH (21:00)
[2020-10-11] MEDS: INSULIN REGULAR 100 UNIT/ML SUBCUT SCH ×6 (01:20→20:41)
[2020-10-11] MEDS: SODIUM CHLORIDE 0.9% 1,000 ML IV SCH ×3 (04:14→21:50)
[2020-10-11 05:35] LABS: Basophils % 0.2 % (0.0-0.8); Eosinophils # 0.1 10*3/uL (0.0-0.87); Eosinophils % 1.3 % (0.00-10.9); Hematocrit 36.5 VOL% (35.7-47.0); Hemoglobin 12.5 GM/DL (12.0-16.0); Immature Granulocytes % 0.3 %; Immature Granulocytes Absolute 0.03 #; Lymphocytes # 3.5 10*3/uL (1.4-4.0); Lymphocytes % 32.9 % (21.3-54.2); Mean Corpuscular HGB Conc 34.2 GM/DL (32-36); Mean Corpuscular Volume 91.5 FL (87-102); Mean Platelet Volume 10.5 FL (9.6-12.0); Monocytes % 6.4 % (1.7-12.7); Neutrophils % 58.9 % (38.7-73.9); Platelet Count 255 T/CUMM (130-400); Red Blood Count 3.99 MC/CUMM (3.8-5.5); Red Cell Distribution Width 11.8 % (9.3-17.3); White Blood Count 10.7 T/CUMM (4-12)
[2020-10-11 06:04] LABS: Calcium 9.5 MG/DL (8.5-10.1); Potassium 3.8 MMOL/L (3.5-5.1)
[2020-10-11] MEDS: PANTOPRAZOLE 40 MG TABLET PO SCH ×2 (08:11→20:41)
[2020-10-11] MEDS: hydroCHLOROthiazide 25 MG TABLET PO SCH (08:11)
[2020-10-11] MEDS: MONTELUKAST 10 MG TABLET PO SCH (08:11)
[2020-10-11] MEDS: ASPIRIN EC 81 MG TABLET PO SCH (08:11)
[2020-10-11] MEDS: ATORVASTATIN 80 MG TABLET PO SCH (08:11)
[2020-10-11] MEDS: GABAPENTIN 300 MG CAPSULE PO SCH ×3 (08:12→20:41)
[2020-10-11] MEDS: FLUoxetine 20 MG CAPSULE PO SCH (08:12)
[2020-10-11] MEDS: amLODIPine 10 MG TABLET PO SCH (08:13)
[2020-10-11] MEDS: LORATADINE 10 MG TABLET PO SCH (08:13)
[2020-10-11] MEDS: sitaGLIPtin 100 MG TABLET PO SCH (08:13)
[2020-10-11] MEDS: CLOPIDOGREL 75 MG TABLET PO SCH (08:13)
[2020-10-11] MEDS: INSULIN GLARGINE 30 UNIT SUBCUT SCH (08:58)
[2020-10-11] MEDS ORDERED: buPROPion XL 150 MG TABLET PO SCH (09:00)
[2020-10-11] MEDS ORDERED: NON-FORMULARY MEDICATION (Liraglutide [Victoza 2-Pak] 1.2 MG) SUBCUT SCH (09:00)
[2020-10-11] MEDS ORDERED: CLOPIDOGREL 75 MG TABLET PO SCH (09:00)
[2020-10-11] MEDS ORDERED: BASAGLAR U INSULIN SUBCUT SCH (09:00)
[2020-10-11] MEDS ORDERED: LIRAGLUTIDE SUBCUT SCH (09:00)
[2020-10-11 13:51] LABS: Bacteria,Urine Occasional /HPF (Few); Bilirubin,Urine Negative (Negative); Blood, Urine Moderate mg/dL (Negative); Glucose,Urine (UA) Negative (Negative); Ketones,Urine Negative (Negative); Nitrite,Urine Negative (Negative); Protein,Urine 30 MG/DL; RBC,Urine 5 /HPF (0-4); Squamous Epithelial Cell,Urine Occasional /HPF (0-10); Urine Appearance CLOUDY (Clear); Urine Color Yellow (Yellow); Urine Specific Gravity 1.017 (1.001-1.035); Urine Urobilinogen < 2.0 EU/DL (0.2-1.0)
[2020-10-11 19:39] LABS: Microalbum/Creat Ratio Random 99.1 RATIO (0-30)
[2020-10-12] MEDS: INSULIN REGULAR 100 UNIT/ML SUBCUT SCH ×6 (00:05→20:28)
[2020-10-12 06:27] LABS: Calcium 9.2 MG/DL (8.5-10.1); Osmolality,Calculated 285.3 MOS/KG (273-304); Potassium 3.3 MMOL/L (3.5-5.1); Risk Ratio 3.31; VLDL Cholesterol 28.2 MG/DL
[2020-10-12] MEDS: SODIUM CHLORIDE 0.9% 1,000 ML IV SCH ×3 (07:34→22:48)
[2020-10-12] MEDS: LORATADINE 10 MG TABLET PO SCH (08:10)
[2020-10-12] MEDS: MONTELUKAST 10 MG TABLET PO SCH (08:10)
[2020-10-12] MEDS: ASPIRIN EC 81 MG TABLET PO SCH (08:10)
[2020-10-12] MEDS: hydroCHLOROthiazide 25 MG TABLET PO SCH (08:11)
[2020-10-12] MEDS: PANTOPRAZOLE 40 MG TABLET PO SCH ×2 (08:11→20:29)
[2020-10-12] MEDS: GABAPENTIN 300 MG CAPSULE PO SCH ×3 (08:11→20:29)
[2020-10-12] MEDS: CLOPIDOGREL 75 MG TABLET PO SCH (08:11)
[2020-10-12] MEDS: ATORVASTATIN 80 MG TABLET PO SCH (08:11)
[2020-10-12] MEDS: amLODIPine 10 MG TABLET PO SCH (08:11)
[2020-10-12] MEDS: FLUoxetine 20 MG CAPSULE PO SCH (08:11)
[2020-10-12] MEDS: sitaGLIPtin 100 MG TABLET PO SCH (08:25)
[2020-10-12] MEDS: INSULIN GLARGINE 30 UNIT SUBCUT SCH (08:25)
[2020-10-12] MEDS ORDERED: POTASSIUM CHLORIDE 20 MEQ TABLET PO ONE (10:39)
[2020-10-12] MEDS: diphenhydrAMINE CAP 50 MG CAPSULE PO SCH ×2 (13:09→20:29)
[2020-10-12] MEDS: methylPREDNISolone SOD SUC 40 MG/1 ML VIAL IV SCH (13:13)
[2020-10-12] MEDS: FAMOTIDINE 20 MG/2 ML VIAL IV SCH (13:14)
[2020-10-12] MEDS ORDERED: HEPARIN/NACL 0.9% 2 UNITS/ML 3,000 UNIT/1,500 ML BAG IV ONE (13:30)
[2020-10-12] MEDS ORDERED: LIDOCAINE 1% 20 ML VIAL ONE (13:30)
[2020-10-12] MEDS ORDERED: NITROGLYCERIN DRIP 50 MG/250 ML BOTTLE IV ONE (13:37)
[2020-10-12] MEDS ORDERED: MIDAZOLAM 2 MG/2 ML VIAL ONE (13:38)
[2020-10-12] MEDS ORDERED: VERAPAMIL 5 MG/2 ML VIAL ONE (13:38)
[2020-10-12] MEDS ORDERED: fentaNYL 100 MCG/2 ML VIAL ONE (13:38)
[2020-10-12] MEDS ORDERED: HEPARIN 5,000 UNIT/1 ML VIAL ONE (13:46)
[2020-10-12] MEDS ORDERED: MELATONIN 3 MG TABLET PO SCH (21:00)
[2020-10-13] MEDS: FAMOTIDINE 20 MG/2 ML VIAL IV SCH (00:21)
[2020-10-13] MEDS: INSULIN REGULAR 100 UNIT/ML SUBCUT SCH ×2 (00:21→04:23)
[2020-10-13] MEDS: methylPREDNISolone SOD SUC 40 MG/1 ML VIAL IV SCH (00:22)
[2020-10-13] MEDS: SODIUM CHLORIDE 0.9% 1,000 ML IV SCH ×2 (02:25→06:08)
[2020-10-13 05:02] LABS: Hematocrit 38.8 VOL% (35.7-47.0); Hemoglobin 12.7 GM/DL (12.0-16.0); Immature Granulocytes % 0.5 %; Immature Granulocytes Absolute 0.04 #; Lymphocytes # 1.1 10*3/uL (1.4-4.0); Lymphocytes % 14.4 % (21.3-54.2); Mean Corpuscular HGB Conc 32.7 GM/DL (32-36); Mean Corpuscular Volume 92.4 FL (87-102); Mean Platelet Volume 10.5 FL (9.6-12.0); Monocytes % 1.3 % (1.7-12.7); Neutrophils % 83.8 % (38.7-73.9); Platelet Count 257 T/CUMM (130-400); Red Cell Distribution Width 11.9 % (9.3-17.3); White Blood Count 7.8 T/CUMM (4-12)
[2020-10-13 05:39] LABS: Calcium 8.5 MG/DL (8.5-10.1); Osmolality,Calculated 288.7 MOS/KG (273-304); Potassium 4.1 MMOL/L (3.5-5.1)
[2020-10-13] MEDS ORDERED: INSULIN REGULAR 100 UNIT/ML SUBCUT SCH (07:30)
[2020-10-13 08:24] VITALS: BP 143/77
[2020-10-13] MEDS: GABAPENTIN 300 MG CAPSULE PO SCH (08:59)
[2020-10-13] MEDS: hydroCHLOROthiazide 25 MG TABLET PO SCH (08:59)
[2020-10-13] MEDS: ASPIRIN EC 81 MG TABLET PO SCH (08:59)
[2020-10-13] MEDS: FLUoxetine 20 MG CAPSULE PO SCH (08:59)
[2020-10-13] MEDS: CLOPIDOGREL 75 MG TABLET PO SCH (08:59)
[2020-10-13] MEDS: ATORVASTATIN 80 MG TABLET PO SCH (09:00)
[2020-10-13] MEDS: LORATADINE 10 MG TABLET PO SCH (09:00)
[2020-10-13] MEDS ORDERED: PANTOPRAZOLE 40 MG TABLET PO SCH (09:00)
[2020-10-13] MEDS: MONTELUKAST 10 MG TABLET PO SCH (09:00)
[2020-10-13] MEDS: amLODIPine 10 MG TABLET PO SCH (09:00)
[2020-10-13] MEDS: sitaGLIPtin 100 MG TABLET PO SCH (09:00)
[2020-10-13] MEDS: INSULIN GLARGINE 30 UNIT SUBCUT SCH (09:01)
== END 2020-10-13 11:32 | disposition home or self-care (01) ==
LOC: N.TELEN 06:08 → N.CL 06:08 → N.TELEN 13:01
PROVIDERS: ADMIT Internal Medicine Cardiovascular Disease; ATTEND Internal Medicine Cardiovascular Disease
PROC: CLCCHCL (ICD-10-PCS; 2020-10-10 08:15)

== ENCOUNTER 2022-04-16 16:38 | Inpatient (IN) ==
[2022-04-16] MEDS ORDERED: ONDANSETRON 4 MG/2 ML VIAL IV STA (18:30)
[2022-04-16 18:39] LABS: Basophils % 0.2 % (0.0-0.8); Eosinophils # 0.1 10*3/uL (0.0-0.87); Eosinophils % 1.1 % (0.00-10.9); Hematocrit 42.4 VOL% (35.7-47.0); Hemoglobin 14.5 GM/DL (12.0-16.0); Immature Granulocytes % 0.5 %; Immature Granulocytes Absolute 0.05 #; Lymphocytes % 32.4 % (21.3-54.2); Mean Corpuscular HGB Conc 34.2 GM/DL (32-36); Mean Platelet Volume 10.6 FL (9.6-12.0); Monocytes # 0.6 10*3/uL (0.11-0.8); Monocytes % 6.2 % (1.7-12.7); Neutrophils % 59.6 % (38.7-73.9); Platelet Count 215 T/CUMM (130-400); Red Blood Count 4.71 MC/CUMM (3.8-5.5); White Blood Count 9.38 T/CUMM (4-12)
[2022-04-16 18:45] LABS: PT Patient Result 11.5 SECS (10.1-12.1)
[2022-04-16 18:59] LABS: Alanine Aminotransferase 17 U/L (13-56); Albumin 3.6 G/DL (3.4-5.0); Alkaline Phosphatase 103 U/L (45-117); Aspartate Amino Transferase 19 U/L (0-37); Blood Urea Nitrogen 23 MG/DL (7-18); Calcium 9.9 MG/DL (8.5-10.1); Carbon Dioxide 27 MMOL/L (21-32); Chloride 99 MMOL/L (98-107); Glucose 113 MG/DL (74-106); Osmolality,Calculated 277.8 MOS/KG (273-304); Potassium 3.4 MMOL/L (3.5-5.1); Sodium 137 MMOL/L (136-145); Total Protein 8.1 G/DL (6.4-8.2)
[2022-04-16 19:26] LABS: Bacteria,Urine Occasional /HPF (Few); Hyaline Casts,Urine 6 /LPF (0-3); Mucus,Urine Occasional /LPF (Occasional); RBC,Urine 5 /HPF (0-4); Squamous Epithelial Cell,Urine Few /HPF (0-10); Urine Appearance Clear (Clear); Urine Color Yellow (Yellow)
[2022-04-16 19:27] LABS: Bilirubin,Urine Small mg/dL (Negative); Blood, Urine Trace mg/dL (Negative); Glucose,Urine (UA) Negative (Negative); Ketones,Urine 15 mg/dL (Negative); Nitrite,Urine Negative (Negative); Protein,Urine 30 mg/dL (Negative); Urine Urobilinogen 0.2 eU/dL (<2.0)
[2022-04-16 19:36] LABS: Barbiturates Screen,Urine Negative (Negative); Benzodiazepines Screen,Urine Negative (Negative); Cannabinoid Screen,Urine Negative (Negative); Opiate Screen,Urine Negative (Negative); Phencyclidine Screen,Urine Negative (Negative)
[2022-04-16 19:43] LABS: Sedimentation Rate-Westergren 46 MM/HR (0-30)
[2022-04-16] MEDS ORDERED: cefTRIAXone 1,000 MG in SODIUM CHLORIDE 0.9% 100 ML IV STA (19:47)
[2022-04-16] MEDS ORDERED: ENOXAPARIN 100 MG/ML SYRINGE SUBCUT STA (19:54)
[2022-04-16] MEDS ORDERED: GLUCAGON 1 MG VIAL IM PRN (20:17)
[2022-04-16] MEDS ORDERED: DEXTROSE 10% 250 ML BAG IV PRN (20:37)
[2022-04-16] MEDS: SODIUM CHLORIDE 0.9% 1,000 ML IV SCH (21:43)
[2022-04-16] MEDS: METOPROLOL TARTRATE 25 MG TABLET PO SCH (21:44)
[2022-04-17] MEDS: INSULIN LISPRO 100 UNIT/ML SUBCUT SCH ×4 (00:17→17:13)
[2022-04-17] MEDS: ACETAMINOPHEN 325 MG TABLET PO PRN ×2 (04:52→09:38)
[2022-04-17 05:15] LABS: Basophils % 0.3 % (0.0-0.8); Eosinophils # 0.2 10*3/uL (0.0-0.87); Eosinophils % 1.7 % (0.00-10.9); Hemoglobin 13.9 GM/DL (12.0-16.0); Immature Granulocytes % 0.4 %; Immature Granulocytes Absolute 0.04 #; Lymphocytes # 3.9 10*3/uL (1.4-4.0); Lymphocytes % 41.6 % (21.3-54.2); Mean Corpuscular HGB Conc 33.1 GM/DL (32-36); Mean Corpuscular Volume 91.1 FL (87-102); Mean Platelet Volume 10.6 FL (9.6-12.0); Monocytes # 0.6 10*3/uL (0.11-0.8); Monocytes % 5.9 % (1.7-12.7); Neutrophils % 50.1 % (38.7-73.9); Platelet Count 215 T/CUMM (130-400); Red Blood Count 4.61 MC/CUMM (3.8-5.5); Red Cell Distribution Width 12.1 % (9.3-17.3); White Blood Count 9.45 T/CUMM (4-12)
[2022-04-17 05:35] LABS: Calcium 9.5 MG/DL (8.5-10.1); Osmolality,Calculated 276.7 MOS/KG (273-304); Risk Ratio 3.12; VLDL Cholesterol 33.2 MG/DL
[2022-04-17] MEDS: SODIUM CHLORIDE 0.9% 1,000 ML IV SCH ×2 (06:07→15:24)
[2022-04-17] MEDS ORDERED: traMADol 50 MG TABLET PO PRN (07:41)
[2022-04-17] MEDS: CLOPIDOGREL 75 MG TABLET PO SCH (09:33)
[2022-04-17] MEDS: hydroCHLOROthiazide 25 MG TABLET PO SCH (09:33)
[2022-04-17] MEDS: ASPIRIN EC 81 MG TABLET PO SCH (09:33)
[2022-04-17] MEDS: FLUoxetine 20 MG CAPSULE PO SCH (09:33)
[2022-04-17] MEDS: ATORVASTATIN 80 MG TABLET PO SCH (09:33)
[2022-04-17] MEDS: amLODIPine 10 MG TABLET PO SCH (09:33)
[2022-04-17] MEDS: PANTOPRAZOLE 40 MG TABLET PO SCH (09:33)
[2022-04-17] MEDS: MONTELUKAST 10 MG TABLET PO SCH (09:33)
[2022-04-17] MEDS: METOPROLOL TARTRATE 25 MG TABLET PO SCH ×2 (09:33→21:11)
[2022-04-17] MEDS: sitaGLIPtin 100 MG TABLET PO SCH (09:34)
[2022-04-17] MEDS: HEPARIN 5,000 UNIT/1 ML VIAL SUBCUT SCH ×2 (09:35→17:05)
[2022-04-17] MEDS: KETOROLAC 15 MG/1 ML VIAL IV PRN (13:28)
[2022-04-17] MEDS: POTASSIUM CHLORIDE 20 MEQ TABLET PO SCH ×2 (13:28→21:10)
[2022-04-17] MEDS ORDERED: cefTRIAXone 1,000 MG VIAL IV SCH (15:30)
[2022-04-17] MEDS: cefTRIAXone 1,000 MG in SODIUM CHLORIDE 0.9% 100 ML IV SCH (21:12)
[2022-04-18] MEDS: INSULIN LISPRO 100 UNIT/ML SUBCUT SCH ×4 (00:51→20:54)
[2022-04-18] MEDS: HEPARIN 5,000 UNIT/1 ML VIAL SUBCUT SCH ×3 (01:19→17:29)
[2022-04-18] MEDS: KETOROLAC 15 MG/1 ML VIAL IV PRN (04:29)
[2022-04-18] MEDS: POTASSIUM CHLORIDE 20 MEQ TABLET PO SCH (05:25)
[2022-04-18] MEDS: ACETAMINOPHEN 325 MG TABLET PO PRN (05:43)
[2022-04-18 06:12] LABS: Osmolality,Calculated 284.1 MOS/KG (273-304); Potassium 3.7 MMOL/L (3.5-5.1)
[2022-04-18] MEDS: SODIUM CHLORIDE 0.9% 1,000 ML IV SCH ×3 (08:00→15:16)
[2022-04-18] MEDS: METOPROLOL TARTRATE 25 MG TABLET PO SCH ×2 (08:20→20:54)
[2022-04-18] MEDS: traMADol 50 MG TABLET PO PRN ×2 (08:20→18:00)
[2022-04-18] MEDS: amLODIPine 10 MG TABLET PO SCH (08:21)
[2022-04-18] MEDS: ATORVASTATIN 80 MG TABLET PO SCH (08:21)
[2022-04-18] MEDS: FLUoxetine 20 MG CAPSULE PO SCH (08:21)
[2022-04-18] MEDS: MONTELUKAST 10 MG TABLET PO SCH (08:21)
[2022-04-18] MEDS: ASPIRIN EC 81 MG TABLET PO SCH (08:21)
[2022-04-18] MEDS: hydroCHLOROthiazide 25 MG TABLET PO SCH (08:21)
[2022-04-18] MEDS: PANTOPRAZOLE 40 MG TABLET PO SCH (08:21)
[2022-04-18] MEDS: CLOPIDOGREL 75 MG TABLET PO SCH (08:21)
[2022-04-18] MEDS: sitaGLIPtin 100 MG TABLET PO SCH (08:21)
[2022-04-18] MEDS ORDERED: diphenhydrAMINE 50 MG/1 ML VIAL IV ONE ×2 (12:42→19:01)
[2022-04-18] MEDS ORDERED: PROMETHAZINE 25 MG/1 ML VIAL IM ONE ×2 (12:42→19:01)
[2022-04-18] MEDS ORDERED: MAGNESIUM SULF RIDER 2 GM/50 ML PREMIX IV ONE (13:45)
[2022-04-18] MEDS: cefTRIAXone 1,000 MG in SODIUM CHLORIDE 0.9% 100 ML IV SCH (20:55)
[2022-04-19] MEDS: HEPARIN 5,000 UNIT/1 ML VIAL SUBCUT SCH ×3 (00:13→17:02)
[2022-04-19] MEDS: traMADol 50 MG TABLET PO PRN (02:02)
[2022-04-19] MEDS: SODIUM CHLORIDE 0.9% 1,000 ML IV SCH ×3 (02:15→15:40)
[2022-04-19] MEDS: INSULIN LISPRO 100 UNIT/ML SUBCUT SCH ×3 (07:39→15:40)
[2022-04-19] MEDS: ASPIRIN EC 81 MG TABLET PO SCH (09:27)
[2022-04-19] MEDS: sitaGLIPtin 100 MG TABLET PO SCH (09:27)
[2022-04-19] MEDS: hydroCHLOROthiazide 25 MG TABLET PO SCH (09:27)
[2022-04-19] MEDS ORDERED: propofoL 200 MG/20 ML VIAL IV ONE (12:46)
[2022-04-19] MEDS ORDERED: LIDOCAINE 2% 5 ML VIAL ONE (12:46)
[2022-04-19 14:07] LABS: Basophils % 0.5 % (0.0-0.8); Eosinophils # 0.3 10*3/uL (0.0-0.87); Hematocrit 40.9 VOL% (35.7-47.0); Hemoglobin 13.6 GM/DL (12.0-16.0); Immature Granulocytes % 0.2 %; Immature Granulocytes Absolute 0.01 #; Lymphocytes # 2.9 10*3/uL (1.4-4.0); Lymphocytes % 44.6 % (21.3-54.2); Mean Corpuscular HGB Conc 33.3 GM/DL (32-36); Mean Corpuscular Volume 92.5 FL (87-102); Mean Platelet Volume 9.8 FL (9.6-12.0); Monocytes # 0.4 10*3/uL (0.11-0.8); Monocytes % 5.4 % (1.7-12.7); Neutrophils % 45.3 % (38.7-73.9); Platelet Count 196 T/CUMM (130-400); Red Blood Count 4.42 MC/CUMM (3.8-5.5); Red Cell Distribution Width 11.9 % (9.3-17.3); White Blood Count 6.52 T/CUMM (4-12)
[2022-04-19 14:34] LABS: Calcium 9.1 MG/DL (8.5-10.1); Osmolality,Calculated 280.3 MOS/KG (273-304); Potassium 4.6 MMOL/L (3.5-5.1)
[2022-04-19] MEDS: FLUoxetine 20 MG CAPSULE PO SCH (14:43)
[2022-04-19] MEDS: PANTOPRAZOLE 40 MG TABLET PO SCH (14:44)
[2022-04-19] MEDS: ATORVASTATIN 80 MG TABLET PO SCH (14:44)
[2022-04-19] MEDS: CLOPIDOGREL 75 MG TABLET PO SCH (14:44)
[2022-04-19] MEDS: MONTELUKAST 10 MG TABLET PO SCH (14:44)
[2022-04-19] MEDS: amLODIPine 10 MG TABLET PO SCH (14:45)
[2022-04-19] MEDS: METOPROLOL TARTRATE 25 MG TABLET PO SCH (14:46)
[2022-04-19] MEDS: KETOROLAC 15 MG/1 ML VIAL IV PRN (14:52)
[2022-04-19 15:04] VITALS: BP 136/69
== END 2022-04-19 19:06 | disposition home or self-care (01) | DRG 690 ==
LOC: N.ED 16:38 → N.EDINP 20:17 → N.TELES 22:33
PROVIDERS: ADMIT Internal Medicine; ATTEND Internal Medicine